=== PATIENT | female | born 1970 | race Caucasian/White ===

== ENCOUNTER 2020-03-12 09:04 | Outpatient (CLI) | payer OTHER ==
--- NOTE | 2020-03-12 09:59 | MMO ---
Bilateral MAMMO Bilat Diag [facility]. CLINICAL HISTORY: Patient is 49 years old and is seen for follow-up at short-interval from prior study. The patient has the following family history of breast cancer: sister, malignant (generic). The patient has no personal history of cancer. VIEWS: The views performed were: bilateral craniocaudal; bilateral craniocaudal with tomosynthesis; bilateral mediolateral oblique; bilateral mediolateral oblique with tomosynthesis; bilateral mediolateral; bilateral mediolateral with tomosynthesis; and cleavage view. FILMS COMPARED: The present examination has been compared to prior imaging studies performed at [facility] on 12/26/2017, 03/22/2019, 04/04/2019 and 09/12/2019. This study has been interpreted with the assistance of computer-aided detection. MAMMOGRAM FINDINGS: There are scattered fibroglandular densities. Finding 1: There are stable benign appearing calcifications seen in both breasts. Finding 2: There is a stable oval mass measuring 3 x 5 mm with circumscribed margins seen in the left breast. There are no suspicious masses, suspicious calcifications, or new areas of architectural distortion. IMPRESSION: THERE IS NO MAMMOGRAPHIC EVIDENCE OF MALIGNANCY. A ROUTINE FOLLOW-UP MAMMOGRAM IN 1 YEAR IS RECOMMENDED. THE RESULTS OF THIS EXAM WERE SENT TO THE PATIENT. ACR BI-RADS Category 2 - Benign finding MAMMOGRAPHY NOTE: 1. A negative mammogram report should not delay a biopsy if a dominant of clinically suspicious mass is present. 2. Approximately 10% to 15% of breast cancers are not detected by mammography. 3. Adenosis and dense breasts may obscure an underlying neoplasm. Reported by: MAG MICHELLE MD Electonically Signed: [id number]
== END 2020-03-12 09:05 | disposition home or self-care (01) ==
LOC: BICMAMMO 09:04
PROVIDERS: ATTEND Family Medicine
DX: R92.8 Other abnormal and inconclusive findings on diagnostic imaging of breast (principal)
CPT/HCPCS: 77066; G0279

== ENCOUNTER 2023-11-09 11:00 | Outpatient (CLI) | payer OTHER | END 2023-11-09 11:01 | disposition home or self-care (01) | LOC: SCSRAD 11:00 | PROVIDERS: ATTEND Family Medicine | DX: S99.921A Unspecified injury of right foot, initial encounter (principal) ==